=== PATIENT | female | born 1995 | race Hispanic/Latino ===

== ENCOUNTER 2017-03-04 00:33 | Emergency (ER) | payer OTHER, SELFPAY ==
--- NOTE | 2017-03-04 07:56 | RAD ---
2 VIEWS CHEST: Date: 03/04/17 COMPARISON: None. HISTORY: Mid sternal chest pain. FINDINGS: Two views of the chest show normal sized cardiomediastinal silhouette. There is no evidence of conso lidation, mass, or pleural effusion. The bones are unremarkable. IMPRESSION: No evidence of acute cardiopulmonary disease. POS: [facility]
== END 2017-03-04 02:00 | disposition home or self-care (01) ==
LOC: ERS 00:33
DX: R07.89 Other chest pain (principal)
CPT/HCPCS: 71020; 93005

== ENCOUNTER 2017-09-10 20:55 | Emergency (ER) | payer SELFPAY ==
[2017-09-10 21:58] LABS: #Basophils 0.1 thou/uL (0.0-0.2); #Eosinphils 0.1 thou/uL (0.0-0.7); #Lymphocytes 2.6 thou/uL (1.20-3.40); #Monocytes 0.6 thou/uL (0.11-0.59); #Neutrophils 6.3 thou/uL (1.40-6.50); %Basophils 0.7 % (0.0-1.0); %Lymphocytes 26.8 % (21.0-51.0); %Monocytes 6.3 % (0.0-10.0); %Neutrophils 65.3 % (42.0-75.0); Hemoglobin 15.7 g/dL (12.0-16.0); Mean Corpuscular HGB CONC 33.9 g/dL (32.0-36.0); Mean Corpuscular Hemoglobin 31.1 pg (27.0-31.0); Mean Corpuscular Volume 91.8 fl (81.0-99.0); Mean Platelet Volume 6.4 fL (7.4-10.4); Platelet Count 325 thou/uL (130-400); RBC Distribution Width 11.8 % (11.5-14.5); Red Blood Cell (RBC) Count 5.04 mill/uL (4.20-5.40); White Blood Cell (WBC) Count 9.7 thou/uL (4.8-10.8)
--- NOTE | 2017-09-11 00:31 | ULT ---
PELVIC ULTRASOUND INCLUDING TRANSABDOMINAL AND TRANSVAGINAL AND VASCULAR DUPLEX WITH COLOR AND SPECTR AL DOPPLER IMAGIN09/10/17 HISTORY: 22-year-old female with history of vaginal bleeding. The uterus measures 8.0 x 2.4 x 3.4 cm with a 1.4 cm somewhat thickened endometrium. The right ovary measures 1.9 x 2.4 x 3.6 cm. The left ovary measures 1.5 x 1.8 x 2.9 cm. No evidence for an intrauter ine gestational sac. Adjacent to the left ovary, there is a somewhat tubular shaped possibly slightly septated or tortuous fluid filled structure of the overall size of which measures approximately 1 x 3 cm. This has more the appearance of a somewhat tortuous dilated left uterine tube. There is nothing that looks like a definite extrauterine gestation. Correlate with serum HCGs. IMPRESSION: No evidence for an intrauterine gestational sac. Somewhat tortuous possibly slightly septated somewha t elongated fluid filled structure adjacent to the left ovary possibly a hydrosalpinx. This does not have typical appearance for an extrauterine gestational sac. Recommend followup serum HCGs, if the HC Gs increase suggesting , then followup pelvic ultrasound should be considered. POS: [facility]
== END 2017-09-11 01:44 | disposition home or self-care (01) ==
LOC: ERS 20:55
DX: R14.0 Abdominal distension (gaseous) (principal)
CPT/HCPCS: 36415; 76856; 84702; 85025; 86900; 86901

== ENCOUNTER 2019-05-21 14:31 | Emergency (ER) | payer SELFPAY | END 2019-05-21 15:23 | disposition home or self-care (01) | LOC: ERS 14:31 | DX: J01.90 Acute sinusitis, unspecified (principal) | CPT/HCPCS: 99283 ==

== ENCOUNTER 2020-01-10 11:19 | Day surgery (SDC) | payer OTHER ==
[2020-01-10] MEDS ORDERED: Betamet Acet/Betamet Na Ph 30 MG/5 ML VIAL IM SCH (11:45)
[2020-01-10 12:02] VITALS: BP 116/64; TEMP 98.6; BMI 32.5
== END 2020-01-10 12:28 | disposition home or self-care (01) ==
LOC: L&D/OP 11:19
PROVIDERS: ATTEND Obstetrics & Gynecology
DX: Z29.8 Encounter for other specified prophylactic measures (principal); O30.009 Twin pregnancy, unspecified number of placenta and unspecified number of amniotic sacs, unspecified trimester; Z3A.00 Weeks of gestation of pregnancy not specified
CPT/HCPCS: 96372; 99282; J0702

== ENCOUNTER 2020-01-11 12:06 | Day surgery (SDC) | payer OTHER ==
[2020-01-11 13:07] VITALS: BMI 32.5
[2020-01-11] MEDS ORDERED: Betamet Acet/Betamet Na Ph 30 MG/5 ML VIAL IM SCH (15:15)
== END 2020-01-11 13:20 | disposition home health service, planned readmission (86) ==
LOC: L&D/OP 12:06
PROVIDERS: ATTEND Obstetrics & Gynecology
DX: Z29.8 Encounter for other specified prophylactic measures (principal); Z3A.00 Weeks of gestation of pregnancy not specified

== ENCOUNTER 2020-01-25 18:37 | Inpatient (IN) | payer OTHER ==
[2020-01-25 19:19] VITALS: BMI 33.8
[2020-01-25] MEDS ORDERED: hydrALAZINE 20 MG/ML VIAL SLOW IVP PRN ×2 (19:32→20:38)
[2020-01-25] MEDS ORDERED: Lactated Ringer's 1,000 ML IV SCH ×2 (19:45→21:30)
--- NOTE | 2020-01-25 19:48 | PDOC.BPN ---
- Brief Progress Note OBGYN [facility] Triage check Patient seen at bedside. Known twins at 30 weeks 1 day. She does not know what her cx exam was today from Dr Hogan in office (earlier). Here for [facility] and [facility]. No recent trauma or sex. She does not know if she is mono-do, or di/di twins. Had steroids previously. H&P Dictated
--- NOTE | 2020-01-25 19:53 | HP ---
TIME OF EVALUATION: Roughly 1915 hours. TIME NOW: 1934 hours. LOCATION: Labor and Delivery in triage. REASON FOR EVALUATION: This is a patient of Dr. Hogan. The patient is at 30 weeks and 1 day gestational age with twins, here for brown discharge after cervical check in the office. HISTORY OF PRESENT ILLNESS: In brief, this patient is a 24-year-old G2, P0, at 30 weeks and 1 day, who has known twins. She saw Dr. Hogan in the office, who performed a cervical examination, but he did not tell her what the result was, according to her. She now comes in with some brownish discharge. She denies vaginal bleeding or leakage of fluid. She has good movement. She has irregular contractions, but they are not regular. REVIEW OF SYSTEMS: Complete review of systems was checked and is otherwise negative unless specified in the HPI. PAST OB HISTORY: She is a G2, P0. One previous miscarriage. PAST SURGICAL HISTORY: Negative. ALLERGIES: NONE. SOCIAL HISTORY: Negative for alcohol, tobacco, or drug use. PHYSICAL EXAMINATION: VITAL SIGNS: Blood pressure is 120/73, pulse is 91, respirations are 18 and unlabored, temperature is 98.4, and O2 saturation on room air is 99%. GENERAL: She is in no acute distress. ABDOMEN: Gravid. GENITOURINARY: There is no gross evidence of leakage of fluid or vaginal bleeding. Cervical exam is currently deferred. On external monitors, the nonstress test is reactive x2 and it is appropriate for gestational age. There are some low amplitude contractions. She has had a contraction about every 7 minutes, but hard to determine if it is a contraction pattern at this time. Interventions ordered. I have ordered 1 L LR and a transvaginal cervical examination. ASSESSMENT: This is a G2, P0, at 30 weeks and 1 day, who had a cervical exam earlier today, the patient of Dr. Hogan. The patient has twins (unknown type) . PLAN: 1. The brown discharge vaginally is likely from the cervical exam earlier today. 2. We cannot perform an FFN due to the cervical examination. 3. She has twins. I will order a transvaginal ultrasound for cervical length. 4. If it is short, we cannot do FFN as just dictated, and she has already received Celestone at 28 weeks. 5. We will do IV hydration and keep her on the monitors for now and await the cervical length for now. Job ID: [id number] MTDD
[2020-01-25] MEDS ORDERED: Ondansetron PF 4 MG/2 ML Vial IVP PRN (20:38)
[2020-01-25] MEDS ORDERED: Lidocaine 1% (PF) 30 ML VIAL SC PRN (20:38)
[2020-01-25] MEDS ORDERED: HYDROcodone/Acetaminophen 5/325 mg Tablet PO PRN ×2 (20:38)
[2020-01-25] MEDS ORDERED: Promethazine HCl 25 MG/ML VIAL IM PRN (20:38)
[2020-01-25] MEDS ORDERED: Butorphanol Tartrate 1 MG/ML VIAL SLOW IVP PRN (20:38)
[2020-01-25] MEDS ORDERED: NS / Oxytocin 40 units/1000ml 1,000 ML IV PRN (20:38)
[2020-01-25] MEDS ORDERED: Ibuprofen 800 MG TAB PO PRN (20:38)
[2020-01-25] MEDS ORDERED: Calcium Gluc 4.6 MEQ/10 ML (100 MG/ML) SLOW IVP PRN (20:40)
[2020-01-25] MEDS ORDERED: Magnesium Sulfate 20 gm/500 ml 20 GM/500 ML BAG ONE (20:43)
--- NOTE | 2020-01-25 20:43 | PDOC.BPN ---
- Brief Progress Note ADMIT note: Present for TVUS...short CX noted at 1.1cm I performed CX exam: Sono at bedside by department: chava/indu Will admit for OBS Mag for neuroprotection GBS coverage Call NICU Sono for EFWs PTL discussed with patient. if prtogresses will need CS for twin delivery non-[facility]/cep Notify Dr Hogan
[2020-01-25] MEDS ORDERED: Penicillin G Potassium 5 MILL.UNITS in Sodium Chloride 0.9% 100 ML IVPB SCH (20:45)
--- NOTE | 2020-01-25 20:54 | PDOC.BPN ---
- Brief Progress Note I have relayed the information to Dr Hogan via [place] Text. Twin A is about 1300 and B is about 1408
[2020-01-25 21:11] LABS: Hemoglobin 10.5 g/dL (12.0-16.0); Mean Corpuscular HGB CONC 33.5 g/dL (32.0-36.0); Mean Corpuscular Hemoglobin 29.3 pg (27.0-31.0); Mean Corpuscular Volume 87.4 fL (78.0-98.0); Mean Platelet Volume 8.2 fL (7.4-10.4); Platelet Count 207 thou/uL (130-400); RBC Distribution Width 14.5 % (11.5-14.5); Red Blood Cell (RBC) Count 3.59 mill/uL (4.20-5.40); White Blood Cell (WBC) Count 9.8 thou/uL (4.8-10.8)
--- NOTE | 2020-01-25 21:27 | ULT ---
Obstetric sonogram transabdominal and transvaginal imaging HISTORY: Premature contractions. FINDINGS: Twin intrauterine gestation. Cervix closed 1.1 cm. Amniotic fluid index 4.2. Amniotic membrane visualized. Twin A vertex presentation. Posterior placenta. Heart motion 144 bpm. Biparietal diameter 30 weeks 1 day Head circumference 29 weeks 5 days Abdominal circumference 29 weeks 4 days Femur length 28 weeks 1 day Estimated weight 1348 g (3 lbs. 0 oz.) Hadlock 12 percentile Twin B breech presentation. Anterior placenta. Heart motion at 140 bpm. Biparietal diameter 29 weeks 6 days Head circumference 29 weeks 6 days Abdominal circumference 29 weeks 5 days Femur length 29 weeks 0 days Estimated weight 1408 g (3 lbs. 2 oz.) Hadlock 19 percentile. IMPRESSION : Twin intrauterine gestation. Estimated gestational ages 29 weeks 3 days and 29 weeks 4 days Oligohydramnios. Thinned cervix 1.1 cm.
[2020-01-25 21:49] LABS: Syphilis Antibody Nonreactive (Nonreactive); Syphilis Antibody Index 0.02 S/CO (<1.00 Non-Reactive)
--- NOTE | 2020-01-25 22:21 | PDOC.BPN ---
- Brief Progress Note Covid screen ordered per protocol, as admit screen
[2020-01-25 22:53] LABS: HBSAg Index 0.13 S/CO (0-0.99); HIV (1/2) Antibody/Antigen Non-Reactive (NonReactive); HIV 1/2 INDEX 0.17 S/CO (<1.00); Hep B Surf Ag Non-Reactive S/CO (NonReactive); Hep C IgG Ab Non-Reactive (NonReactive); Hep C Index 0.07 S/CO (0-0.79)
[2020-01-25] MEDS: Penicillin G 2.5 MILL.units 2.5 MILL.UNITS in Premix Bag 1 BAG IVPB SCH (23:10)
[2020-01-25 23:52] LABS: Amnisure Internal Control QC ACCEPTABLE (ACCEPTABLE)
[2020-01-26] LABS: Amnisure Test RUPTURE DETECTED (No Rupture)
--- NOTE | 2020-01-26 00:20 | PDOC.BPN ---
- Brief Progress Note SROM. [facility] aware. [facility] has requested AMP and ZMAX...will put in orders
[2020-01-26] MEDS ORDERED: Ampicillin 2 GM in Sodium Chloride 0.9% 100 ML IVPB SCH ×2 (00:30→06:00)
[2020-01-26] MEDS ORDERED: Azithromycin 1,000 MG in Sodium Chloride 0.9% 500 ML IVPB SCH (00:30)
[2020-01-26] MEDS: Penicillin G 2.5 MILL.units 2.5 MILL.UNITS in Premix Bag 1 BAG IVPB SCH ×2 (01:05→08:34)
[2020-01-26 01:23] LABS: SARS-CoV-2 NAA Rapid Test Not Detected (NotDetected)
[2020-01-26] MEDS ORDERED: MORPHINE 5 MG/10 ML PF VIAL ONE (01:51)
[2020-01-26] MEDS ORDERED: Fentanyl 100 MCG/2 ML VIAL ONE (01:51)
[2020-01-26] MEDS ORDERED: EPHEDRINE 25 MG/5 ML SYRINGE ONE (01:52)
[2020-01-26] MEDS ORDERED: Oxytocin 10 UNITS/ML VIAL ONE ×2 (01:52→03:06)
[2020-01-26] MEDS ORDERED: Ondansetron PF 4 MG/2 ML Vial ONE (01:52)
[2020-01-26] MEDS ORDERED: Ketorolac Tromethamine 30 MG/ML VIAL ONE (01:52)
[2020-01-26] MEDS ORDERED: Bicitra 30 ML UDCUP ONE (02:19)
[2020-01-26] MEDS ORDERED: PHENYLEPHRINE-NS 100 MCG/ML 10 ML SYRINGE ONE ×2 (02:43→03:06)
[2020-01-26] MEDS ORDERED: L&D-Morphine 4 MG/ML VIAL SLOW IVP PRN (02:55)
[2020-01-26] MEDS ORDERED: Ondansetron PF 4 MG/2 ML Vial IVP PRN ×2 (02:55→06:31)
[2020-01-26] MEDS ORDERED: diphenhydrAMINE 50 MG/ML VIAL IVP PRN (02:55)
[2020-01-26] MEDS ORDERED: Promethazine HCl 25 MG SUPP PR PRN (02:55)
[2020-01-26] MEDS ORDERED: Meperidine HCl/PF 25 MG/ML VIAL SLOW IVP PRN (02:55)
[2020-01-26] MEDS ORDERED: HYDROmorphone 2 MG/ML VIAL SLOW IVP PRN (02:55)
[2020-01-26] MEDS ORDERED: Ondansetron HCl/PF 4 MG/2 ML Vial IVP PRN (02:55)
[2020-01-26] MEDS ORDERED: Naloxone HCl 0.4 mg/ml Vial IVP PRN ×2 (02:55)
[2020-01-26] MEDS ORDERED: Promethazine HCl 25 MG/ML VIAL IM PRN ×2 (02:55→06:31)
[2020-01-26] MEDS ORDERED: Naloxone HCl 0.4 mg/ml Vial IV PRN (02:55)
[2020-01-26] MEDS ORDERED: Ketorolac Tromethamine 30 MG/ML VIAL IVP SCH (03:00)
[2020-01-26] MEDS ORDERED: Communication Order-Pharmacy FS SCH (03:00)
[2020-01-26] MEDS ORDERED: Dexamethasone 4 mg/ml Vial ONE (03:36)
[2020-01-26] MEDS ORDERED: Meperidine HCl/PF 25 MG/ML VIAL ONE (04:46)
[2020-01-26] MEDS ORDERED: Morphine 4 MG/ML VIAL ONE (05:59)
[2020-01-26] MEDS ORDERED: hydrALAZINE 20 MG/ML VIAL SLOW IVP PRN (06:31)
[2020-01-26] MEDS ORDERED: Methylergonovine 0.2 MG/ML VIAL IM PRN (06:31)
[2020-01-26] MEDS ORDERED: Misoprostol 200 MCG TAB PR PRN (06:31)
[2020-01-26] MEDS ORDERED: Lanolin Ointment 7 GM TUBE TOP PRN (06:31)
[2020-01-26] MEDS ORDERED: NS / Oxytocin 40 units/1000ml 1,000 ML IV SCH (06:31)
[2020-01-26] MEDS ORDERED: Measles/Mumps/Rubella 10 MCG/0.5 ML VIAL SC ONE (06:31)
[2020-01-26] MEDS ORDERED: diphenhydrAMINE 25 MG CAP PO PRN (06:31)
[2020-01-26] MEDS ORDERED: Zolpidem Tartrate 5 MG TAB PO PRN (06:31)
[2020-01-26] MEDS ORDERED: Bisacodyl 10 MG SUPP PR PRN (06:31)
[2020-01-26] MEDS: Ibuprofen 800 MG TAB PO SCH ×3 (07:44→22:15)
[2020-01-26] MEDS: Docusate Calcium (SURFAK) 240 MG CAP PO SCH ×2 (08:35→20:56)
[2020-01-26] MEDS: Prenatal Vitamin 1 TAB PO SCH (08:35)
[2020-01-26] MEDS ORDERED: Varicella virus, LIVE 0.5 ML VIAL SC ONE (09:00)
[2020-01-26] MEDS ORDERED: Adacel (T-DAP) 0.5 ML SYRINGE IM ONE (09:00)
--- NOTE | 2020-01-26 09:32 | ULT ---
Obstetric sonogram transabdominal and transvaginal imaging HISTORY: Premature contractions. FINDINGS: Twin intrauterine gestation. Cervix closed 1.1 cm. Amniotic fluid index 4.2. Amniotic membrane visualized. Twin A vertex presentation. Posterior placenta. Heart motion 144 bpm. Biparietal diameter 30 weeks 1 day Head circumference 29 weeks 5 days Abdominal circumference 29 weeks 4 days Femur length 28 weeks 1 day Estimated weight 1348 g (3 lbs. 0 oz.) Hadlock 12 percentile Twin B breech presentation. Anterior placenta. Heart motion at 140 bpm. Biparietal diameter 29 weeks 6 days Head circumference 29 weeks 6 days Abdominal circumference 29 weeks 5 days Femur length 29 weeks 0 days Estimated weight 1408 g (3 lbs. 2 oz.) Hadlock 19 percentile. IMPRESSION : Twin intrauterine gestation. Estimated gestational ages 29 weeks 3 days and 29 weeks 4 days Oligohydramnios. Thinned cervix 1.1 cm. Transcribed Date/Time: 01/26/2020 9:32 AM
[2020-01-26] MEDS: Ketorolac Tromethamine 30 MG/ML VIAL IVP PRN ×2 (11:34→17:31)
[2020-01-26] MEDS ORDERED: HYDROcodone/Acetaminophen 5/325 mg Tablet PO PRN ×2 (15:00)
[2020-01-26] MEDS: HYDROcodone/Acetaminophen 5/325 mg Tablet PO PRN ×2 (16:26→20:57)
[2020-01-26] MEDS: Simethicone Chewable 80 MG TAB PO PRN (16:26)
[2020-01-26] MEDS ORDERED: Sodium Chloride 0.9% 10 ML ONE (17:35)
[2020-01-27] MEDS: HYDROcodone/Acetaminophen 5/325 mg Tablet PO PRN ×4 (03:13→18:47)
[2020-01-27] MEDS: Ibuprofen 800 MG TAB PO SCH ×3 (04:52→21:10)
[2020-01-27 06:18] LABS: Mean Corpuscular HGB CONC 32.1 g/dL (32.0-36.0); Mean Corpuscular Hemoglobin 28.3 pg (27.0-31.0); Mean Corpuscular Volume 88.2 fL (78.0-98.0); Mean Platelet Volume 8.3 fL (7.4-10.4); Platelet Count 180 thou/uL (130-400); RBC Distribution Width 14.6 % (11.5-14.5); Red Blood Cell (RBC) Count 2.82 mill/uL (4.20-5.40)
[2020-01-27] MEDS: Prenatal Vitamin 1 TAB PO SCH (07:50)
[2020-01-27] MEDS: Docusate Calcium (SURFAK) 240 MG CAP PO SCH ×2 (07:50→21:10)
[2020-01-27] MEDS: Simethicone Chewable 80 MG TAB PO PRN (07:50)
[2020-01-27] MEDS ORDERED: Azithromycin 500 MG in Sodium Chloride 0.9% 250 ML 250 ML IVPB SCH (08:00)
[2020-01-28] MEDS: HYDROcodone/Acetaminophen 5/325 mg Tablet PO PRN ×2 (03:23→12:30)
[2020-01-28] MEDS: Ibuprofen 800 MG TAB PO SCH ×3 (05:44→21:25)
[2020-01-28] MEDS: Prenatal Vitamin 1 TAB PO SCH (09:53)
[2020-01-28] MEDS: Docusate Calcium (SURFAK) 240 MG CAP PO SCH ×2 (09:53→21:25)
[2020-01-28] MEDS: Simethicone Chewable 80 MG TAB PO PRN ×2 (12:30→21:27)
--- NOTE | 2020-01-28 21:17 | PDOC.PP ---
Post Progress Note Post Day #: 1 PO intake tolerated: yes Flatus: yes Ambulation: yes Weight Weight 151 lb - Physical Examination General: NAD Cardiovascular: no m/r/g, RRR Respiratory: clear to auscultation bilaterally, non-labored breathing Abdominal: + bowel sounds, lochia, no distention Extremities: negative homans (B) Skin: CS incision dry & intact, no rash Neurological: no gross focal deficits Psychiatric: A&Ox3, normal affect Result Diagrams: 01/27/20 05:48 Additional Labs: Post Labs Blood Type O POSITIVE 01/25/20 21:00 Hep Bs Antigen Non-Reactive S/CO (NonReactive) 01/25/20 21:00
--- NOTE | 2020-01-28 21:18 | PDOC.PP ---
Post Progress Note Post Day #: 2 PO intake tolerated: yes Flatus: yes Ambulation: yes Weight Weight 151 lb - Physical Examination General: NAD Cardiovascular: no m/r/g, RRR Respiratory: clear to auscultation bilaterally, non-labored breathing Abdominal: + bowel sounds, lochia, no distention, appropriately TTP Extremities: negative homans (B) Skin: CS incision dry & intact, no rash Neurological: no gross focal deficits (DC to boarding planned late tomorrow.) Psychiatric: A&Ox3, normal affect Result Diagrams: 01/27/20 05:48 Additional Labs: Post Labs Blood Type O POSITIVE 01/25/20 21:00 Hep Bs Antigen Non-Reactive S/CO (NonReactive) 01/25/20 21:00
--- NOTE | 2020-01-29 00:33 | OP ---
DATE OF PROCEDURE: 01/26/2020 TIME OF DELIVERY: At 2:58 [place] Daylight Savings Time. PREOPERATIVE DIAGNOSIS: Intrauterine with monochorionic diamniotic twins at 30 weeks and 2 days with labor and premature rupture of membranes at 30 weeks and 2 days. POSTOPERATIVE DIAGNOSIS: Intrauterine with monochorionic diamniotic twins at 30 weeks and 2 days with labor and premature rupture of membranes at 30 weeks and 2 days. PROCEDURE: Primary low-transverse section. FINDINGS: Baby A viable male , weighing 1425 g or 3 pounds 2 ounces with Apgars of seven and eight. Baby B weighing 1365 g or 3 pounds 0 ounce with Apgars of eight and eight. QUANTITATIVE BLOOD LOSS: 1094 mL. COMPLICATIONS: None. DETAILS OF PROCEDURE: After obtaining consent, the patient was taken back to the operating room where her regional anesthesia was found to be adequate. The patient was placed in the dorsal supine position with leftward tilt. The skin was tested for adequate anesthesia and a scalpel was then used to make a Pfannenstiel incision which was carried down to the underlying rectus fascia. The fascia was incised in the midline and the fascial incision extended in both lateral directions. 2 Rachel clamps were placed at the superior aspect of the fascia and the rectus muscles were dissected away. Similarly, 2 Rachel clamps were placed at the inferior aspect of the incision and rectus muscles dissected away. The rectus muscles were then in the midline and the peritoneum identified and entered bluntly with the hemostat. The peritoneal incision was then extended superiorly and inferiorly. A bladder blade was then placed within the peritoneal cavity and a bladder flap was made with Metzenbaum scissors and pickups with teeth. The bladder blade was replaced. A clean scalpel was used to make a uterine incision. Baby A was delivered with gentle fundal pressure without difficulty. The baby's mouth and nose were bulb suctioned and the cord clamped and cut. The baby was then handed to waiting attendants prepared to accept baby A. Baby A's cord blood was collected and the cord marked for pathology as "A." Next., amniotomy was performed on the second membranes, and baby B was delivered in a controlled manner without difficulty. The mouth and nose were bulb suctioned and cord clamped and cut. The baby was then handed to waiting attendants prepared to accept baby B in a second warmer. Baby B's cord blood was collected and the cord marked for pathology as "B." The uterus was exteriorized, cleared of all clots and debris, and repaired with #1 chromic suture in a running, locked fashion. Hemostasis at the uterine wall was excellent. The bladder flap was repaired with 2-0 Monocryl in a running fashion. The tubes and ovaries were inspected and appeared normal. The posterior cul-de-sac was blotted dry and the uterus was replaced within the abdomen. Again, the uterus was firm, and hemostasis was excellent at the uterine repair. Peritoneum was closed with 2-0 chromic suture in a running fashion. Fascia was reapproximated with 0 Vicryl, using 2 running sutures tied in the midline. The subcutaneous tissue was irrigated. Hemostasis was assured and the skin closed with 3-0 Monocryl and Dermabond adhesive. The patient was then transferred to the ambulatory bed and taken to recovery in stable condition. Job ID: [id number]
[2020-01-29] MEDS: Simethicone Chewable 80 MG TAB PO PRN ×3 (01:27→12:38)
[2020-01-29] MEDS: Ibuprofen 800 MG TAB PO SCH ×2 (05:21→13:58)
[2020-01-29] MEDS: Docusate Calcium (SURFAK) 240 MG CAP PO SCH (08:18)
[2020-01-29] MEDS: Prenatal Vitamin 1 TAB PO SCH (08:18)
[2020-01-29 09:28] VITALS: BP 124/56; TEMP 98.2
[2020-01-29] MEDS: HYDROcodone/Acetaminophen 5/325 mg Tablet PO PRN (12:38)
[2020-01-29] MEDS ORDERED: Milk Of Magnesia 30 ML UDCUP PO SCH (14:45)
== END 2020-01-29 17:15 | disposition home or self-care (01) | DRG 786 ==
LOC: L&D/OP 18:37 → L&D 22:40 → 3SW 01-26 06:45
PROVIDERS: ADMIT Obstetrics & Gynecology; ATTEND Obstetrics & Gynecology
PROC: 10D00Z1 Extraction of Products of Conception, Low, Open Approach (ICD-10-PCS; principal; 2020-01-25)
DX: O30.033 Twin pregnancy, monochorionic/diamniotic, third trimester (principal); O60.14X0 Preterm labor third trimester with preterm delivery third trimester, not applicable or unspecified; O42.913 Preterm premature rupture of membranes, unspecified as to length of time between rupture and onset of labor, third trimester; Z3A.30 30 weeks gestation of pregnancy; Z37.2 Twins, both liveborn; Z20.828 Contact with and (suspected) exposure to other viral communicable diseases
CPT/HCPCS: 36415; 51702; 76815; 84112; 85027; 86780; 86803; 86850; 86900; 86901; 87340; 87389; 87635; 88307; 99285; J0456; J0595; J0690; J1100; J1885; J2175; J2270; J2274; J2405; J2540; J2590; J3010; J3475; J3490; J7030; U0002; U0003

== ENCOUNTER 2020-08-26 19:21 | Observation (INO) | payer OTHER ==
[~2020-08-26 19:21] MED LIST: Iopamidol-370 76% 500 ML 1 ML ONE
[2020-08-26 19:50] LABS: #Basophils 0.1 thou/uL (0.0-0.2); #Eosinphils 0.1 thou/uL (0.0-0.7); #Lymphocytes 2.6 thou/uL (1.20-3.40); #Monocytes 0.6 thou/uL (0.11-0.59); #Neutrophils 4.3 thou/uL (1.40-6.50); %Basophils 0.7 % (0.0-1.0); %Eosinophils 1.5 % (0.0-10.0); %Lymphocytes 34.4 % (21.0-51.0); %Monocytes 7.3 % (0.0-10.0); %Neutrophils 56.3 % (42.0-75.0); Hemoglobin 13.5 g/dL (12.0-16.0); Mean Corpuscular HGB CONC 32.6 g/dL (32.0-36.0); Mean Corpuscular Hemoglobin 29.7 pg (27.0-31.0); Mean Corpuscular Volume 91.3 fL (78.0-98.0); Mean Platelet Volume 8.2 fL (7.4-10.4); Platelet Count 236 thou/uL (130-400); RBC Distribution Width 12.9 % (11.5-14.5); Red Blood Cell (RBC) Count 4.52 mill/uL (4.20-5.40); White Blood Cell (WBC) Count 7.6 thou/uL (4.8-10.8)
[2020-08-26 19:54] LABS: BHCG - Serum Negative (NEGATIVE); Pregs Control Background? CLEAR/WHITE (CLR/WHITE); Pregs Control Bar Appear? YES (CONTROL BAR)
[2020-08-26] MEDS ORDERED: Fentanyl 100 MCG/2 ML VIAL ONE (19:54)
[2020-08-26 19:57] LABS: INR-International Normal Ratio 0.9; Prothrombin Time 12.7 sec (12.0-14.7)
[2020-08-26 20:12] LABS: ALT (SGPT) 32 U/L (8-55); AST (SGOT) 32 U/L (5-34); Albumin 4.4 g/dL (3.5-5.0); Alkaline Phosphatase 77 U/L (40-110); Anion Gap 14 mmol/L (10-20); BUN (Urea Nitrogen) 15 mg/dL (7.0-18.7); Bilirubin, Total 0.5 mg/dL (0.2-1.2); Calc. Creatinine Clearance 0 mL/min (70-130); Calcium 9.2 mg/dL (7.8-10.44); Carbon Dioxide 21 mmol/L (22-29); Chloride 106 mmol/L (98-107); Glucose 101 mg/dL (70-105); Protein, Total 7.4 g/dL (6.0-8.3); Sodium 137 mmol/L (136-145)
[2020-08-26] MEDS ORDERED: Dextrose 5% in Water 1,000 ML IV PRN (20:19)
[2020-08-26] MEDS ORDERED: Dextrose 50% Abboject 50 ML SYRINGE SLOW IVP PRN (20:19)
[2020-08-26] MEDS ORDERED: Ondansetron PF 4 MG/2 ML Vial IVP PRN (20:19)
[2020-08-26] MEDS ORDERED: traMADol HCl 50 MG TAB PO PRN ×2 (20:22)
[2020-08-26] MEDS ORDERED: Ondansetron PF 4 MG/2 ML Vial ONE (20:43)
[2020-08-26] MEDS ORDERED: Morphine 4 MG/ML VIAL ONE (20:43)
[2020-08-26] MEDS: Sodium Chloride 0.9% 1,000 ML IV SCH (22:00)
[2020-08-26 22:22] VITALS: BMI 29.4
[2020-08-26] MEDS: Ketorolac Tromethamine 30 MG/ML VIAL IVP SCH (23:39)
[2020-08-26] MEDS: Acetaminophen 500 MG TAB PO SCH (23:40)
[2020-08-27 04:45] LABS: SARS-CoV-2 PCR by NAA Not Detected (NotDetected)
[2020-08-27] MEDS: Ketorolac Tromethamine 30 MG/ML VIAL IVP SCH ×2 (05:23→12:55)
[2020-08-27] MEDS: Acetaminophen 500 MG TAB PO SCH ×2 (05:23→12:55)
[2020-08-27] MEDS: Sodium Chloride 0.9% 1,000 ML IV SCH (05:43)
[2020-08-27 05:46] LABS: #Lymphocytes 1.3 thou/uL (1.20-3.40); #Monocytes 0.7 thou/uL (0.11-0.59); #Neutrophils 4.3 thou/uL (1.40-6.50); %Basophils 0.8 % (0.0-1.0); %Lymphocytes 20.5 % (21.0-51.0); %Monocytes 10.4 % (0.0-10.0); %Neutrophils 68.3 % (42.0-75.0); Hemoglobin 12.1 g/dL (12.0-16.0); Mean Corpuscular HGB CONC 32.7 g/dL (32.0-36.0); Mean Corpuscular Hemoglobin 29.9 pg (27.0-31.0); Mean Corpuscular Volume 91.3 fL (78.0-98.0); Mean Platelet Volume 7.8 fL (7.4-10.4); Platelet Count 226 thou/uL (130-400); RBC Distribution Width 12.9 % (11.5-14.5); Red Blood Cell (RBC) Count 4.03 mill/uL (4.20-5.40); White Blood Cell (WBC) Count 6.2 thou/uL (4.8-10.8)
[2020-08-27 06:05] LABS: Anion Gap 11 mmol/L (10-20); BUN (Urea Nitrogen) 12 mg/dL (7.0-18.7); Calc. Creatinine Clearance 141 mL/min (70-130); Calcium 8.4 mg/dL (7.8-10.44); Carbon Dioxide 25 mmol/L (22-29); Chloride 104 mmol/L (98-107); Glucose 113 mg/dL (70-105); Phosphorus 4.4 mg/dL (2.3-4.7); Potassium 4.4 mmol/L (3.5-5.1); Sodium 136 mmol/L (136-145)
[2020-08-27 12:20] VITALS: BP 106/90; TEMP 98
== END 2020-08-27 15:33 | disposition home or self-care (01) ==
LOC: ERS 19:21 → INTOOBSV 20:20 → SURG B 20:20
PROVIDERS: ADMIT Surgery; ATTEND Surgery
DX: S30.1XXA Contusion of abdominal wall, initial encounter (principal); Q63.1 Lobulated, fused and horseshoe kidney; N28.1 Cyst of kidney, acquired; N94.89 Other specified conditions associated with female genital organs and menstrual cycle; Z20.822 Contact with and (suspected) exposure to COVID-19; V53.6XXA Passenger in pick-up truck or van injured in collision with car, pick-up truck or van in traffic accident, initial encounter
CPT/HCPCS: 36415; 70450; 71260; 72125; 74177; 80048; 80053; 83605; 83735; 84100; 84703; 85025; 85610; 85730; 86850; 86900; 86901; 87635; 94760; 96374; 96375; 96376; G0378; G0390; J1885; J2270; J2405; J3010; Q9967; U0003; U0005

== ENCOUNTER 2023-01-11 20:58 | Emergency (ER) | payer OTHER, SELFPAY ==
[~2023-01-11 20:58] MED LIST changes: -Iopamidol-370 76% 500 ML 1 ML ONE; +Iopamidol-370 76% 500 ML MDV (1 ML CHARGE) ONE
[2023-01-11 21:33] LABS: #Eosinphils 0.1 thou/uL (0.0-0.7); #Monocytes 0.5 thou/uL (0.11-0.59); #Neutrophils 5.2 thou/uL (1.40-6.50); %Basophils 0.3 % (0.0-1.0); %Eosinophils 0.9 % (0.0-10.0); %Lymphocytes 24.7 % (21.0-51.0); %Monocytes 6.1 % (0.0-10.0); %Neutrophils 67.7 % (42.0-75.0); Hematocrit 37.3 % (36.0-47.0); Hemoglobin 12.6 g/dL (12.0-16.0); Mean Corpuscular HGB CONC 33.8 g/dL (32.0-36.0); Mean Corpuscular Volume 91.9 fl (78.0-98.0); Mean Platelet Volume 9.8 fL (7.4-10.4); Platelet Count 255 10x3/uL (130-400); RBC Distribution Width 13.1 % (11.5-14.5); Red Blood Cell (RBC) Count 4.06 mill/uL (4.20-5.40); White Blood Cell (WBC) Count 7.7 10x3/uL (4.8-10.8)
[2023-01-11] MEDS ORDERED: Acetaminophen 500 MG TAB ONE (21:47)
[2023-01-11 21:56] LABS: ALT (SGPT) 25 U/L (8-55); AST (SGOT) 45 U/L (5-34); Albumin 3.9 g/dL (3.5-5.0); Alkaline Phosphatase 74 U/L (40-110); Anion Gap 22 mmol/L (10-20); BUN (Urea Nitrogen) 6 mg/dL (7.0-18.7); Bilirubin, Total 0.3 mg/dL (0.2-1.2); Calc. Creatinine Clearance 0 mL/min (70-130); Calcium 9.3 mg/dL (7.8-10.44); Carbon Dioxide 20 mmol/L (22-29); Chloride 101 mmol/L (98-107); Estimated GFR 130; Globulin 3.4 g/dL (2.4-3.5); Glucose 90 mg/dL (70-105); Lipase 24 U/L (8-78); Potassium 3.9 mmol/L (3.5-5.1); Protein, Total 7.3 g/dL (6.0-8.3); Sodium 139 mmol/L (136-145)
== END 2023-01-12 01:07 | disposition home or self-care (01) ==
LOC: ERS 20:58
DX: R07.89 Other chest pain (principal); R91.1 Solitary pulmonary nodule
CPT/HCPCS: 71045; 71275; 80053; 83690; 83880; 84484; 85025; 85379; 93005; Q9967

== ENCOUNTER 2025-05-20 19:06 | Emergency (ER) | payer OTHER ==
[2025-05-20 20:08] LABS: #Basophils Less than 0.03 10x3/uL (0.0-0.2); #Eosinophils 0.23 10x3/uL (0.0-0.7); #Monocytes 0.47 10x3/uL (0.11-0.59); #Neutrophils 2.58 10x3/uL (1.40-6.50); %Basophils 0.4 % (0.0-1.0); %Eosinophils 4.3 % (0.0-10.0); %Lymphocytes 37.4 % (21.0-51.0); %Monocytes 8.9 % (0.0-10.0); %Neutrophils 48.8 % (42.0-75.0); Hematocrit 38.9 % (36.0-47.0); Hemoglobin 12.7 g/dL (12.0-16.0); Mean Corpuscular Hemoglobin 29.6 pg (27.0-31.0); Mean Corpuscular Volume 90.7 fL (78.0-98.0); Platelet Count 225 10x3/uL (130-400); Red Blood Cell (RBC) Count 4.29 mill/uL (4.20-5.40); White Blood Cell (WBC) Count 5.29 10x3/uL (4.8-10.8)
[2025-05-20 20:23] LABS: ALT (SGPT) 21 U/L (Less than 34); AST (SGOT) 28 U/L (11-34); Albumin 4.1 g/dL (3.1-4.5); Alkaline Phosphatase 77 U/L (40-110); Anion Gap 7 mmol/L (10-20); BUN (Urea Nitrogen) 15 mg/dL (7.0-18.7); Bilirubin, Total 0.3 mg/dL (0.3-1.2); Calc. Creatinine Clearance 0 mL/min (70-130); Calcium 9.0 mg/dL (7.8-10.44); Carbon Dioxide 24 mmol/L (22-29); Chloride 109 mmol/L (98-107); Globulin 3.2 g/dL (2.4-3.5); Glucose 87 mg/dL (70-105); Potassium 4.1 mmol/L (3.5-5.1); Sodium 136 mmol/L (136-145)
== END 2025-05-20 21:35 | disposition home or self-care (01) ==
LOC: ERS 19:06
DX: R07.89 Other chest pain (principal)
CPT/HCPCS: 71045; 80053; 84484; 85025; 93005